=== PATIENT | female | born 1940 | race Caucasian/White ===

== ENCOUNTER 2017-12-15 11:46 | Outpatient (CLI) | payer MEDICARE, MEDICAID ==
[~2017-12-15] VITALS: Ht 152.4 cm; Wt 60.3 kg
[2017-12-15] MEDS ORDERED: MAGN400C PO (14:39)
[2017-12-15] MEDS ORDERED: CETI10TA17 PO (14:39)
[2017-12-15] MEDS ORDERED: CALC-857 PO (14:39)
[2017-12-15] MEDS ORDERED: CELE200C PO (14:39)
[2017-12-15] MEDS ORDERED: CYCL5.5D OU (14:39)
[2017-12-15] MEDS ORDERED: MONT10TA24 PO (14:39)
[2017-12-15] MEDS ORDERED: ATOR20TA66 PO (14:39)
[2017-12-15] MEDS ORDERED: LOSA50TA36 PO (14:39)
[2017-12-15] MEDS ORDERED: OMEP40CA36 PO (14:39)
[2017-12-15] MEDS ORDERED: LUBI8CAP PO (14:39)
[2017-12-15] MEDS ORDERED: LEVO75TA6 PO (14:39)
[2017-12-15] MEDS ORDERED: ASPI-586 PO (14:39)
[2017-12-15] MEDS ORDERED: GLUC100016 PO (14:39)
[2017-12-15] MEDS ORDERED: FLAX100032 PO (14:39)
== END 2017-12-15 14:45 | disposition home or self-care (01) ==
LOC: PREOP 11:46
PROVIDERS: ATTEND Otolaryngology Otolaryngology/Facial Plastic Surgery
DX: Z01.818 Encounter for other preprocedural examination (principal)

== ENCOUNTER 2017-12-22 08:13 | Day surgery (SDC) | payer MEDICARE, MEDICAID ==
[~2017-12-22] VITALS: Ht 152.4 cm; Wt 60.3 kg
[~2017-12-22 08:13] MED LIST: ASPI-586 PO; ATOR20TA66 PO; CALC-857 PO; CELE200C PO; CETI10TA17 PO; CYCL5.5D OU; FLAX100032 PO; GLUC100016 PO; LEVO75TA6 PO; LOSA50TA36 PO; LUBI8CAP PO; MAGN400C PO; MONT10TA24 PO; OMEP40CA36 PO
[2017-12-22] MEDS ORDERED: LIDOCAINE/EPI 1%-1:200,000 (XYLOCAINE) 10 ML VIAL ONE (08:37)
[2017-12-22] MEDS ORDERED: fentaNYL INJECTION 100 MCG/2 ML AMP ONE (08:49)
[2017-12-22] MEDS ORDERED: SEVOFLURANE (ULTANE) 15 ML INHAL SOLN ONE ×3 (08:49→09:59)
[2017-12-22] MEDS ORDERED: LIDOCAINE PF 2% 5 ML (XYLOCAINE) VIAL ONE (08:49)
[2017-12-22] MEDS ORDERED: proPOfol 200 MG/20 ML (DIPRIVAN) VIAL IV ONE (08:49)
[2017-12-22] MEDS ORDERED: ROCURONIUM 10 MG/ML 5 ML SYRINGE IV ONE (08:49)
[2017-12-22] MEDS ORDERED: MIDAZOLAM 2 MG/2 ML (VERSED) VIAL ONE (08:49)
[2017-12-22] MEDS ORDERED: ONDANSETRON 4 MG/2 ML (SDV) Z0FRAN ONE (08:49)
[2017-12-22] MEDS ORDERED: LACTATED RINGERS 1,000 ML IV PRN ×2 (09:34)
--- NOTE | 2017-12-22 09:51 | Progress Note-Pre Operative ---
Pre-Operative Progress Note H&P Reviewed The H&P was reviewed, patient examined and no changes noted. Date Seen by Provider: Dec 22, 2017 Time Seen by Provider: 09:00 Date H&P Reviewed: Dec 22, 2017 Time H&P Reviewed: 09:00 Pre-Operative Diagnosis: Right Daniela of Tongue Mass ALIX PRICE MD Dec 22, 2017 9:51 am
[2017-12-22 10:17] VITALS: BP 110/68
[2017-12-22] MEDS ORDERED: HYDR-3816 PO (10:20)
[2017-12-22] MEDS ORDERED: TIZA2CAP9 PO (10:20)
[2017-12-22] MEDS ORDERED: ceFAZolin 1,000 MG (ANCEF) VIAL ONE (10:21)
--- NOTE | 2017-12-22 10:41 | Progress Note-Post Operative ---
Post-Operative Progess Note Surgeon (s)/[facility] Manager (s) Surgeon ALIX PRICE MD [facility] Manager n/a Pre-Operative Diagnosis Right Daniela of Tongue Mass Post-Operative Diagnosis same Post-Op Procedure Note Date of Procedure: Dec 22, 2017 Name of Procedure Performed: Direct Larnygoscopy with Bipsies of Base of Tongue Description & Findings Description and Findings: n/a Anesthesia Type get Estimated Blood Loss minimal Packing none. Specimen(s) collected/removed base of tongue biopsies ALIX PRICE MD Dec 22, 2017 10:41 am
[2017-12-22] MEDS ORDERED: GLYCOPYRROLATE 0.2 MG/ML (ROBINUL) 2 ML VIAL ONE (10:43)
[2017-12-22] MEDS ORDERED: NEOSTIGMINE 1 MG/ML 5 ML SYRINGE ONE (10:43)
[2017-12-22] MEDS ORDERED: ACETAMINOPHEN 325 MG TABLET PO PRN (10:45)
[2017-12-22] MEDS ORDERED: HYDROcodone/APAP 5 MG/325 MG (LORTAB) TAB PO PRN (10:45)
[2017-12-22] MEDS ORDERED: PROMETHAZINE INJ 25 MG/ML (PHENERGAN) AMP IV PRN (10:45)
[2017-12-22] MEDS ORDERED: morphine INJ 10 MG/ML 1ML (SYR OR VIAL) IVP PRN (11:00)
[2017-12-22] MEDS ORDERED: ONDANSETRON 4 MG/2 ML (SDV) Z0FRAN IVP PRN (11:00)
[2017-12-22] MEDS ORDERED: morphine INJ 4 MG/ML 1 ML (VIAL/SYRINGE) ONE (11:12)
[2017-12-22 11:50] VITALS: BP 131/53
[2017-12-22 12:20] VITALS: BP 132/69
--- NOTE | 2017-12-22 12:22 | Anesthesia-General Post-Op ---
General Patient Condition Mental Status/LOC: Same as Preop Cardiovascular: Satisfactory Nausea/Vomiting: Absent Respiratory: Satisfactory Pain: Controlled Complications: Absent Post Op Complications Complications None Follow Up Care/Instructions Patient Instructions None needed. Anesthesia/Patient Condition Patient Condition Patient is doing well, no complaints, stable vital signs, no apparent adverse anesthesia problems. No complications reported per nursing. D/C home per [facility] [place] [facility] Criteria: Yes KANDY FREEMAN CRNA Dec 22, 2017 12:22
[2017-12-22 12:50] VITALS: BP 121/60
[2017-12-22 13:05] VITALS: BP 121/60
--- OUTSIDE RECORDS SUMMARY | 2017-12-23 10:57 | XMS REPORT ---
Author Author BUTCH SAMUEL Organization [employer] Address Unknown Phone Unavailable Care Team Providers Care Rn Clinical Resource Name Role Phone BUTCH SAMUEL CP Unavailable Allergies, Adverse Reactions, Alerts Substance Reaction Event Type N.K.D.A. Info Not Available Non Drug Allergy Problems Problem Type Condition Code Onset Dates Condition Status Assessment Dental examination Z01.20 Active Problem Dental examination V72.2 Active Medications Medication Code System Code Instructions Start Date End Date Status Dosage VESIcare [facility] [address]-21 not defined Atorvastatin Calcium [facility] [address]-56 not defined Hydrocodone-Acetaminophen [facility] [address]-46 Jun 25, 2013 by oral route losartan NDC 0 Jun 25, 2013 by oral route Alprazolam [facility] [address]-18 not defined Forteo [facility] [address]-56 not defined Carvedilol [facility] [address]-65 Jun 25, 2013 by oral route Omeprazole NDC 0 Jun 25, 2013 by oral route levothyroxine NDC 0 Jun 25, 2013 by oral route Aspirin Adult Low Dose [facility] [address]-03 not defined Procedures Procedure Coding System Code Date PROPHYLAXIS - ADULT CPT-4 D1110 July 14, 2015 COMP ORAL EVALUATION - NEW/EST PT CPT-4 D0150 July 14, 2015 Vital Signs Date/Time: July 14, 2015 Blood Pressure Diastolic 59 mmHg Blood Pressure Systolic 100 mmHg Results No Known Results Summary Purpose [employer] Submission
--- OUTSIDE RECORDS SUMMARY | 2017-12-23 10:57 | XMS REPORT ---
Author Author KIMBERLY CONLEY Organization [facility] Address [address] [place] [address] Care Team Providers Care Rn Employee Health Name Role Phone KIMBERLY CONLEY Unavailable PROBLEMS Type Condition ICD9-CM Code VCG36-WR Code Onset Dates Condition Status SNOMED Code Problem Dental examination V72.2 Active 64787984 ALLERGIES No Information ENCOUNTERS Encounter Location Date Diagnosis [facility] [place] [address] [id number] [place] [id number] Jun, [facility] [address] [facility] [address] [id number] [place] [id number] Apr, Dental examination Z01.20 [facility] [address] [facility] [address] [id number] [place] [id number] Apr, [facility] [place] [address] [facility] [address] [id number] [place] [id number] Jan, Dental examination Z01.20 [facility] [address] [facility] [address] [id number] [place] [id number] Jul, Dental examination Z01.20 [facility] [place] [id number] [address] Aug, [facility] [place] [id number] [address] Aug, [facility] [place] [id number] [address] Jun, [facility] [place] [id number] [address] Jun, [facility] [address] [id number] [place] [id number] May, [facility] [place] [address] [address] May, IMMUNIZATIONS No Known Immunizations SOCIAL HISTORY Never Assessed REASON FOR VISIT PLAN OF CARE VITAL SIGNS MEDICATIONS Unknown Medications RESULTS No Results PROCEDURES No Known procedures INSTRUCTIONS MEDICATIONS ADMINISTERED No Known Medications MEDICAL (GENERAL) HISTORY Type Description Date Medical History high blood pressure Medical History bone densitiy medication Medical History Left knee replaced 2009 Medical History Left shoulder surgery 2011 Medical History Left leg broken July 2014 Medical History arthritis Medical History back trouble 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
--- OUTSIDE RECORDS SUMMARY | 2017-12-23 10:57 | XMS REPORT ---
Author Author JESUS SHIPMAN Organization [facility] Address [address] [place] [address] Care Team Providers Care Drilling Rig Operator Name Role Phone JESUS SHIPMAN Unavailable PROBLEMS Type Condition ICD9-CM Code ZMA63-BN Code Onset Dates Condition Status SNOMED Code Problem Dental examination Z01.20 Active 45476585 Problem Dental examination V72.2 Active 30602115 Assessment Dental examination Z01.20 Jan, Active 57534260 ALLERGIES Substance Reaction Event Type Date Status N.K.D.A. Unknown Non Drug Allergy Jan, Unknown SOCIAL HISTORY No smoking Hx information available PLAN OF CARE VITAL SIGNS Blood pressure systolic 114 mmHg 2016-01-28 Blood pressure diastolic 58 mmHg 2016-01-28 MEDICATIONS Medication Instructions Dosage Frequency Start Date End Date Duration Status Carvedilol by oral route Jun, Active losartan by oral route Jun, Active Omeprazole by oral route Jun, Active Forteo Active Hydrocodone-Acetaminophen by oral route Jun, Active VESIcare Active Atorvastatin Calcium Active levothyroxine by oral route Jun, Active Aspirin Adult Low Dose Active Alprazolam Active RESULTS No Results PROCEDURES Procedure Date Ordered Related Diagnosis Body Site PROPHYLAXIS - ADULT Jan 28, 2016 IMMUNIZATIONS No Known Immunizations
--- OUTSIDE RECORDS SUMMARY | 2017-12-23 10:57 | XMS REPORT ---
Author Author HANS THOMPSON [facility] Address [address] [place] [address] Care Team Providers Care Chopper Operator Name Role Phone HANS THOMPSON Unavailable PROBLEMS Type Condition ICD9-CM Code RWP42-RM Code Onset Dates Condition Status SNOMED Code Problem Dental examination V72.2 Active 77805530 ALLERGIES No Known Allergies ENCOUNTERS Encounter Location Date Diagnosis [facility] [place] [address] [id number] [facility] [place] [id number] Jun, [facility] [address] [id number] [place] [id number] Apr, Dental examination Z01.20 [facility] [place] [address] [id number] [place] [id number] Apr, [facility] [place] [address] [id number] [facility] [id number] Jan, Dental examination Z01.20 [facility] [address] [id number] [facility] [id number] Jul, Dental examination Z01.20 [facility] [id number] [address] Aug, [facility] [id number] [address] Aug, [facility] [id number] [address] Jun, [facility] [id number] [address] Jun, [facility] [address] [id number] [place] [id number] May, [facility] [id number] [address] May, IMMUNIZATIONS No Known Immunizations SOCIAL HISTORY Never Assessed REASON FOR VISIT RUSS PLAN OF CARE Activity Details Follow Up 6 Months Reason: VITAL SIGNS MEDICATIONS Medication Instructions Dosage Frequency Start Date End Date Duration Status levothyroxine by oral route Jun, Active Omeprazole by oral route Jun, Active Carvedilol by oral route Jun, Active Forteo Active Hydrocodone-Acetaminophen by oral route Jun, Active VESIcare Active Alprazolam Active losartan by oral route Jun, Active Atorvastatin Calcium Active Aspirin Adult Low Dose Active RESULTS No Results PROCEDURES Procedure Date Ordered Result Body Site PERIODIC ORAL EXAMINATION Apr 28, 2017 PROPHYLAXIS - ADULT Apr 28, 2017 BITEWINGS - THREE FILMS Apr 28, 2017 INSTRUCTIONS MEDICATIONS ADMINISTERED No Known Medications MEDICAL [...] knee replaced 2009 Surgical History left shoulder 2012 Surgical History broke left leg July 2014 Hospitalization History for surgeries
--- OUTSIDE RECORDS SUMMARY | 2017-12-23 10:57 | XMS REPORT | Continuity of Care Document ---
Author Author Formerly [facility] Address Unknown Phone Unavailable Allergies There is no data. Medications There is no data. Problems Date Dx Coded Attending Type Code Diagnosis Diagnosed By 06/26/2013 F 596.51 HYPERTONICITY OF BLADDER 06/26/2013 F 786.30 HEMOPTYSIS, UNSPECIFIED 02/11/2016 Milfeld, José Miguel J I10 Essential (primary) hypertension Milfeld, José Miguel J 02/11/2016 Milfeld, Ojsé Miguel J M19.90 Unspecified osteoarthritis, unspecified site Milfeld, José Miguel J 02/11/2016 Milfeld, José Miguel J Z96.652 Presence of left artificial knee joint Milfeld, José Miguel J 02/13/2016 Milfeld, José Miguel J I10 Essential (primary) hypertension Milfeld, José Miguel J 02/13/2016 Milfeld, José Miguel J M19.90 Unspecified osteoarthritis, unspecified site Milfeld, José Miguel J 02/13/2016 Milfeld, José Miguel J Z96.652 Presence of left artificial knee joint Milfeld, José Miguel J 03/01/2016 VANESSA YU M54.16 Radiculopathy, lumbar region 03/01/2016 VANESSA YU M54.5 Low back pain 04/05/2016 VANESSA YU M54.14 Radiculopathy, thoracic region 04/05/2016 VANESSA YU M54.6 Pain in thoracic spine 04/05/2016 VANESSA YU Z98.890 Other specified postprocedural states 08/23/2016 VANESSA YU M54.16 Radiculopathy, lumbar region 08/23/2016 VANESSA YU M54.5 Low back pain 09/27/2016 VANESSA YU M50.122 Cervical disc disorder at C5-C6 level with radiculopathy 09/27/2016 VANESSA YU M54.2 Cervicalgia 09/27/2016 VANESSA YU M54.5 Low back pain 07/11/2017 VANESSA YU F M54.12 Radiculopathy, cervical region 07/11/2017 VANESSA YU M54.2 Cervicalgia Procedures Code Description [place] [address] Office or other outpatient visit for the evaluation and management of a new patient, which requires José Miguel Harrell 02/11/2016 [address]65 Office or other outpatient visit for the evaluation and management of a new patient, which requires José Miguel Harrell 03/17/2016 Results There is no data. Encounters ACCT No. Visit Date/Time Discharge Status Pt. Type Provider Facility Loc./Unit Complaint [id number] 06/08/2013 12:49:00 06/08/2013 23:59:59 CLS Outpatient GABRIELE LOZANO MD [id number] 07/11/2017 14:15:00 07/11/2017 23:59:59 CLS Outpatient [id number] 07/11/2017 13:30:00 07/11/2017 17:30:00 DIS Outpatient GIGIVANESSA [id number] 09/27/2016 09:30:00 09/27/2016 13:30:00 DIS OP GIGI VANESSA [id number] 08/23/2016 11:45:00 08/23/2016 15:45:00 DIS OP GGII VANESSA [id number] 04/05/2016 08:49:00 04/05/2016 12:49:00 DIS OP VANESSA YU [id number] 03/01/2016 11:30:00 03/01/2016 15:30:00 DIS LUCAS VANESSA [id number] 06/26/2013 09:15:00 Document Registration [id number] 03/15/2016 11:41:41 03/15/2016 11:41:41 DIS Unknown [id number] 12/09/2016 14:51:29 12/09/2016 14:51:29 DIS Unknown [id number] 04/28/2017 16:00:00 04/28/2017 23:59:59 CLS Outpatient JANNET MCMULLEN LAC [facility] [place] [id number] 12/15/2015 11:24:20 12/15/2015 11:24:20 DIS Unknown [id number] 03/04/2016 09:32:18 03/04/2016 23:59:59 CLS Outpatient José Miguel Harrell
== END 2017-12-22 13:05 | disposition home or self-care (01) ==
LOC: SDC 08:13
PROVIDERS: ATTEND Otolaryngology Otolaryngology/Facial Plastic Surgery
DX: K14.9 Disease of tongue, unspecified (principal); Z11.2 Encounter for screening for other bacterial diseases; M81.0 Age-related osteoporosis without current pathological fracture; I10 Essential (primary) hypertension; K21.9 Gastro-esophageal reflux disease without esophagitis; Z96.652 Presence of left artificial knee joint; Z79.899 Other long term (current) drug therapy
CPT/HCPCS: 87081